=== PATIENT | male | born 1990 | race Caucasian/White ===

== ENCOUNTER 2016-08-06 19:14 | Emergency (ER) | payer SELFPAY ==
[2016-08-06 19:26] VITALS: RESP 18
--- NOTE | 2016-08-06 20:32 | ED ---
General Adult HPI - General Chief complaint: Extremity Injury, Lower Stated complaint: ankle pain Time Seen by Provider: 08/06/16 20:05 Source: patient, RN notes reviewed Mode of arrival: ambulatory Limitations: no limitations - History of Present Illness Initial comments: This is a 26-year-old male presents with chronic left ankle pain after a fall that happened about a month ago. Patient states he rolled his ankle while walking about one month ago. Patient states he had an x-ray done and this was negative. Patient was told he had a right ankle sprain the swelling has not gone down after month. Patient has been walking on the left lower extremity. Patient is on his feet a lot at work. Patient has been resting and elevating and icing left ankle, but the swelling persists. Patient did not follow-up with orthopedics as he could not get into the office due to loss of insurance. Patient denies any new or recent injury to left ankle. Patient also complains of some mild left foot pain. Patient denies any numbness/weakness/tingling. Patient denies any recent fever, chills, shortness breath, chest pain, abdominal pain, nausea/vomiting/diarrhea, back pain, hematuria, headache, or visual changes, or any other complaints. - Related Data Home Medications Medication Instructions Recorded Confirmed No Known Home Medications [No 08/06/16 08/06/16 Known Home Medications] Allergies Allergy/AdvReac Type Severity Reaction Status Date / Time Penicillins Allergy Unknown Verified 08/06/16 19:26 Review of Systems ROS Statement: Those systems with pertinent positive or pertinent negative responses have been documented in the HPI. ROS Other: All systems not noted in ROS Statement are negative. Past Medical History Past Medical History: No Reported History History of Any Multi-Drug Resistant Organisms: None Reported Past Surgical History: Orthopedic Surgery Past Psychological History: No Psychological Hx Reported Smoking Status: Current every day smoker Past Alcohol Use History: None Reported Past Drug Use History: Marijuana General Exam - General Exam Comments Initial Comments: General: The patient is awake and alert, in no distress, and does not appear acutely ill. Neck: The neck is supple, there is no tenderness or JVD. Cardiovascular: There is a regular rate and rhythm. No murmur, rub or gallop is appreciated. Respiratory: Lungs are clear to auscultation, respirations are non-labored, breath sounds are equal. No wheezes, stridor, rales, or rhonchi. Musculoskeletal: There is tenderness to palpation over the lateral aspect of the left ankle and to the dorsal aspect of the left foot near the third and fourth MTP joints. There is moderate swelling to the lateral aspect of the left ankle with mild erythema. There is no ecchymosis. Full range of motion, strength 5/5 and Sensation intact. Posterior and dorsalis pedis pulses are 2+ bilaterally. Neurological: A&O x 3. CN II-XII intact, There are no obvious motor or sensory deficits. Coordination appears grossly intact. Speech is normal. Skin: Skin is warm and dry and no rashes or lesions are noted. Psychiatric: Normal mood and affect. Limitations: no limitations Course Vital Signs 08/06/16 19:23 Temperature 98.2 F Pulse Rate 68 Respiratory 18 Rate Blood Pressure 121/66 O2 Sat by Pulse 99 Oximetry Medical Decision Making - Medical Decision Making This is a 26-year-old male who presents with chronic left ankle pain after he rolled his ankle about one month ago. Patient complains of persistent swelling and pain. On physical exam There is tenderness to palpation over the lateral aspect of the left ankle and to the dorsal aspect of the left foot near the third and fourth MTP joints. There is moderate swelling to the lateral aspect of the left ankle with mild erythema. There is no ecchymosis. Full range of motion, strength 5/5 and Sensation intact. Posterior and dorsalis pedis pulses are 2+ bilaterally. An x-ray of the left ankle and left foot was done and review showing:X-ray foot left: No evidence of fracture dislocation. Redemonstration of soft tissue swelling over the lateral malleolus and small tibiotalar joint effusion. As recommended on the ankle radiograph of the same day MR could be performed due to suspected ligamentous injury. X-ray ankle left : There is no fracture or dislocation evident considering persistent soft tissue swelling over the lateral malleolus, small joint effusion, and persistent pain one month after injury ligamentous injury suspected. Nonemergent MR can be performed for further evaluation. Reports read by Dr. Hammond. Discussed the imaging results with the patient. Discussed rest, ice, elevate and use Timmy wrap for compression. Patient will be given a prescription for an air cast. Discussed range of motion exercises. Discussed that sprains can be swollen for months. Discussed that patient should follow up with orthopedics in the next 1-2 days. Discussed that patient may need possible MRI. Discussed return parameters. Discussed that patient should follow up with PCP in one to 2 days or return to the [facility] for any worsening symptoms or for any further concerns. Patient was receptive to this plan and patient will be discharged home. I discussed his case with attending physician Dr. Gross who agrees the plan as stated above. Disposition Clinical Impression: Left ankle sprain Disposition: HOME SELF-CARE Condition: Good Instructions: Ankle Sprain (ED) Additional Instructions: Please continue to rest, ice, elevate and use Timmy wrap for compression. Please use Aircast as needed for stability. Please perform range of motion exercises multiple times throughout the day. Please continue kevs-laz-[id number] Tylenol and or Motrin as needed for any pain. Follow up with orthopedics as soon as possible. Please follow-up with family doctor in the next 2 days of symptoms have not improved. Please return to emergency room if the symptoms increase or worsen or for any other concerns. Referrals: Amrinda Parkinson MD [Primary Care Provider] - 1-2 days Marcin Park MD [Medical Doctor] - 1-2 days Time of Disposition: 21:14
--- NOTE | 2016-08-06 21:04 | XR ---
EXAMINATION TYPE: XR ankle complete LT DATE OF EXAM: 08/06/2016 8:34 PM COMPARISON: NONE HISTORY: Left foot and left ankle pain with swelling since injury about one month prior. Worst pain i s overlying the lateral malleolus. TECHNIQUE: 3 views of the left ankle were obtained. FINDINGS: There is a tibiotalar small joint effusion present with obscuration of the fascial planes b oth anteriorly and posteriorly. Lateral soft tissue swelling is noted. There is no evidence of fractu re or dislocation. No radiopaque foreign body. Ankle mortise is intact. Joint spaces are maintained. IMPRESSION: No there is no fracture or dislocation evident considering persistent soft tissue swellin g over the lateral malleolus, small joint effusion, and persistent pain one month after injury ligame ntous injury is suspected. Nonemergent MR could be performed for further evaluation.
--- NOTE | 2016-08-06 21:06 | XR ---
EXAMINATION TYPE: XR foot complete LT DATE OF EXAM: 08/06/2016 8:34 PM COMPARISON: Left ankle radiographs of the same day. HISTORY: Left foot and ankle pain one month after injury. TECHNIQUE: Reviews were obtained of the left foot. FINDINGS: There is no evidence of fracture or dislocation. Again there is a small tibiotalar joint ef fusion noted as seen on the ankle radiographs and swelling over the lateral malleolus, also appreciat ed on the ankle radiographs of the same day. No radiopaque foreign body or soft tissue laceration. Zaira int spaces are maintained. IMPRESSION: No evidence of fracture or dislocation. Redemonstration of soft tissue swelling over the lateral malleolus and small tibiotalar joint effusion. As recommended on the ankle radiograph of the same day MR could be performed due to suspected ligamentous injury.
[2016-08-06 21:31] VITALS: BP 130/78; PULSE 84; TEMP 97.8
== END 2016-08-06 21:15 | disposition home or self-care (01) ==
LOC: EC 19:14
DX: S93.402A Sprain of unspecified ligament of left ankle, initial encounter (principal); F17.200 Nicotine dependence, unspecified, uncomplicated; X50.1XXA Overexertion from prolonged static or awkward postures, initial encounter; Z88.0 Allergy status to penicillin
CPT/HCPCS: 99283

== ENCOUNTER 2016-11-10 16:47 | Emergency (ER) | payer SELFPAY ==
[2016-11-10 16:58] VITALS: BP 133/70; PULSE 98; RESP 18; TEMP 98.4
--- NOTE | 2016-11-10 17:14 | ED ---
Skin/Abscess/FB HPI - General Chief complaint: Skin/Abscess/Foreign Body Stated complaint: Leg Abscess Time Seen by Provider: 11/10/16 17:00 Source: patient, RN notes reviewed Mode of arrival: ambulatory Limitations: no limitations - History of Present Illness Initial comments: 26 yo female presents to emergency complaining of abscess to his left oneill area. Patient states he's been on antibiotics for 2 days but did not have the abscess drained at that time. Patient states he still having some drainage from the abscess without that he should be seen. Patient denies any history of MRSA but does admit to a history of abscesses. Patient denies any fever chills with this. Patient states is not currently having any other symptoms. Patient states his concern is how the dentist we thought that he should be evaluated. Patient denies any recent fever, chills, shortness of breath, chest pain, back pain, abdominal pain, nausea vomiting, numbness or tingling, dysuria or hematuria, constipation or diarrhea, headaches or visual changes, or any other current symptoms. - Related Data Home Medications Medication Instructions Recorded Confirmed Sulfamethoxazole/Trimethoprim 1 each PO DAILY 11/10/16 11/10/16 [Bactrim DS 800-160 mg] Allergies Allergy/AdvReac Type Severity Reaction Status Date / Time Penicillins Allergy Unknown Verified 11/10/16 16:58 Review of Systems ROS Statement: Those systems with pertinent positive or pertinent negative responses have been documented in the HPI. ROS Other: All systems not noted in ROS Statement are negative. Past Medical History Past Medical History: No Reported History History of Any Multi-Drug Resistant Organisms: None Reported Past Surgical History: Orthopedic Surgery Past Psychological History: No Psychological Hx Reported Smoking Status: Current every day smoker Past Alcohol Use History: None Reported Past Drug Use History: Marijuana General Exam - General Exam Comments Initial Comments: General: The patient is awake and alert, in no distress, and does not appear acutely ill. Neck: The neck is supple, there is no tenderness. Cardiovascular: There is a regular rate and rhythm. No murmur, rub or gallop is appreciated. Respiratory: Lungs are clear to auscultation, respirations are non-labored, breath sounds are equal. No wheezes, stridor, rales, or rhonchi. Musculoskeletal: Sensation intact with 2+ pulses throughout the left lower extremity. Full range of motion of the left knee and left ankle. Patient has An abscess that does have some purulent drainage to the left upper oneill. There is full range of motion. No streaking. Minimal erythema and induration surrounding the area. Neurological: CN II-XII intact, There are no obvious motor or sensory deficits. Coordination appears grossly intact. Speech is normal. Skin: Skin is warm and dry and no rashes or lesions are noted. Psychiatric: Normal mood and affect. Limitations: no limitations Course Vital Signs 11/10/16 16:55 Temperature 98.4 F Pulse Rate 98 Respiratory 18 Rate Blood Pressure 133/70 O2 Sat by Pulse 95 Oximetry Procedures - Procedures Initial comment: Procedure: Incision and drainage The skin overlying the abscess was prepped with Betadine, and anesthetized with 1% lidocaine without epinephrine. A #11 scalpel was then used to incise the abscess. Some purulent material was then extracted from the lesion. Gauze dressing placed on top, The patient tolerated the procedure well. Medical Decision Making - Medical Decision Making 26-year-old male presents for abscess to the left oneill. At this time patient underwent I&D procedure. We discussed follow-up return parameters. We discussed surgery. Patient family's questions. They stated he understood. They will be discharged. Disposition Clinical Impression: Abscess of left leg Disposition: HOME SELF-CARE Condition: Stable Instructions: Abscess (ED), Abscess Incision and Drainage (ED) Additional Instructions: Please use medication as discussed. Please follow up with family doctor if symptoms have not improved over the next two days. Please return to the emergency room if your symptoms increase or worsen or for any other concerns. Continue the antibiotics that she were previously prescribed. Referrals: Arminda Parkinson MD [Primary Care Provider] - 1-2 days Time of Disposition: 17:14
== END 2016-11-10 17:23 | disposition home or self-care (01) ==
LOC: EC 16:47
DX: L02.416 Cutaneous abscess of left lower limb (principal); F17.200 Nicotine dependence, unspecified, uncomplicated; Z88.0 Allergy status to penicillin
CPT/HCPCS: 10060; 99282

== ENCOUNTER 2017-01-26 13:16 | Emergency (ER) | payer OTHER ==
[2017-01-26 13:23] VITALS: BP 128/71; PULSE 84; RESP 15; TEMP 97.4
--- NOTE | 2017-01-26 13:33 | ED ---
General Adult HPI - General Chief complaint: Skin/Abscess/Foreign Body Stated complaint: Abscess Time Seen by Provider: 01/26/17 13:23 Source: patient, RN notes reviewed Mode of arrival: ambulatory Limitations: no limitations - History of Present Illness Initial comments: 26-year-old male presents emergency Department chief complaint abscess to the left hip. Patient states that it is already draining. He has been using some leftover Bactrim at home. Patient menstrual history of abscess in the past. Patient states he was concerned that it may need to be contact however 3 thought that he should be seen. Patient denies any fever chills cough cold runny nose. Patient states only if you touch the ear is painful sitting here he is not having pain. Patient denies any other symptoms at this time.Patient denies any recent fever, chills, shortness of breath, chest pain, back pain, abdominal pain, nausea vomiting, numbness or tingling, dysuria or hematuria, constipation or diarrhea, headaches or visual changes, or any other current symptoms. - Related Data Home Medications Medication Instructions Recorded Confirmed Sulfamethoxazole/Trimethoprim 1 each PO DAILY 11/10/16 11/10/16 [Bactrim DS 800-160 mg] Previous Rx's Medication Instructions Recorded Sulfamethox-Tmp 800-160Mg [Bactrim 2 each PO Q12HR #56 tab 01/26/17 DS 800-160 mg] Allergies Allergy/AdvReac Type Severity Reaction Status Date / Time Penicillins Allergy Unknown Verified 01/26/17 13:22 Review of Systems ROS Statement: Those systems with pertinent positive or pertinent negative responses have been documented in the HPI. ROS Other: All systems not noted in ROS Statement are negative. Past Medical History Past Medical History: No Reported History History of Any Multi-Drug Resistant Organisms: None Reported Past Surgical History: Orthopedic Surgery Past Psychological History: No Psychological Hx Reported Smoking Status: Former smoker Past Alcohol Use History: None Reported Past Drug Use History: Marijuana General Exam Limitations: no limitations General appearance: alert, in no apparent distress Neck exam: Present: normal inspection. Absent: tenderness, meningismus, lymphadenopathy Respiratory exam: Absent: respiratory distress Cardiovascular Exam: Present: regular rate Neurological exam: Present: alert, oriented X3 Psychiatric exam: Present: normal affect, normal mood Skin exam: Present: warm, dry, intact, other (Patient appears to have an actively draining abscess to the left groin area. Mild erythema surrounding the area.) Course Vital Signs 01/26/17 13:20 Temperature 97.4 F L Pulse Rate 84 Respiratory 15 Rate Blood Pressure 128/71 O2 Sat by Pulse 98 Oximetry Medical Decision Making - Medical Decision Making 26-year-old male presents for abscess to the left groin. This time we'll continue patient on Bactrim. We discussed return parameters and follow-up all the patient's questions. He stated he understood and he is given his pain. At this time he will be discharged home. Disposition Clinical Impression: Abscess of left hip Disposition: HOME SELF-CARE Condition: Stable Instructions: Abscess (ED) Additional Instructions: Please use medication as discussed. Please follow up with family doctor if symptoms have not improved over the next two days. Please return to the emergency room if your symptoms increase or worsen or for any other concerns. Prescriptions: Sulfamethox-Tmp 800-160Mg [Bactrim DS 800-160 mg] 2 each PO Q12HR #56 tab Referrals: Arminda Parkinson MD [Primary Care Provider] - 1-2 days Time of Disposition: 13:32
== END 2017-01-26 13:42 | disposition home or self-care (01) ==
LOC: EC 13:16
DX: L02.416 Cutaneous abscess of left lower limb (principal); Z87.891 Personal history of nicotine dependence; Z88.0 Allergy status to penicillin
CPT/HCPCS: 99282

== ENCOUNTER 2017-12-19 12:12 | Emergency (ER) | payer OTHER ==
[2017-12-19 12:20] VITALS: BP 126/88; PULSE 80; RESP 20; TEMP 98.8
[2017-12-19] MEDS ORDERED: CLINDAMYCIN 150 MG CAP PO STA (12:31)
[2017-12-19] MEDS ORDERED: KETOROLAC 30 MG/ML 1 ML VIAL IM STA (12:33)
--- NOTE | 2017-12-19 12:35 | ED ---
ENT HPI - General Chief complaint: ENT Stated complaint: FACIAL SWELLING Time Seen by Provider: 12/19/17 12:21 Source: patient Mode of arrival: ambulatory Limitations: no limitations - History of Present Illness Initial comments: 27-year-old male patient presents to the emergency department today for evaluation of right upper dental pain and facial swelling. Patient states that he has had symptoms for the last 3 days. Patient states that he does have a broken tooth to the area. Patient states he has been taking ibuprofen for his pain but it is not helping. States he has been taking Keflex for the past 3 days which is also not helping. Significant other reports that he had a fever of 100.1F the other day. Patient states he does not have a dentist or dental insurance. He denies any trismus, difficulty swallowing, eye pain, nausea, or vomiting. Patient denies any recent rash, shortness breath, chest pain, dizziness, weakness, headache, visual changes, or any other complaints. - Related Data Home Medications Medication Instructions Recorded Confirmed Sulfamethoxazole/Trimethoprim 1 each PO DAILY 11/10/16 11/10/16 [Bactrim DS 800-160 mg] Previous Rx's Medication Instructions Recorded Sulfamethox-Tmp 800-160Mg [Bactrim 2 each PO Q12HR #56 tab 01/26/17 DS 800-160 mg] Acetaminophen-Codeine 300-30mg 1 tab PO Q6H PRN #12 tablet 12/19/17 [Tylenol #3] Clindamycin HCl 300 mg PO Q6H #40 cap 12/19/17 Allergies Allergy/AdvReac Type Severity Reaction Status Date / Time Penicillins Allergy Unknown Verified 12/19/17 12:20 Review of Systems ROS Statement: Those systems with pertinent positive or pertinent negative responses have been documented in the HPI. ROS Other: All systems not noted in ROS Statement are negative. Past Medical History Past Medical History: No Reported History History of Any Multi-Drug Resistant Organisms: None Reported Past Surgical History: Orthopedic Surgery Additional Past Surgical History / Comment(s): rt ankle Past Psychological History: No Psychological Hx Reported Smoking Status: Former smoker Past Alcohol Use History: None Reported Past Drug Use History: Marijuana General Exam Limitations: no limitations General appearance: alert, in no apparent distress, other (This is a well- developed, well-nourished adult male patient in no acute distress. Vital signs upon presentation are temperature 98.8F, pulse 80, respirations 20, blood pressure 126/88, pulse ox 99% on room air.) Eye exam: Present: PERRL, EOMI, periorbital swelling (Right lower lid swelling) , other (No proptosis, no eye pain with palpation). Absent: normal appearance, scleral icterus, conjunctival injection ENT exam: Present: mucous membranes moist, other (Patient has broken tooth #4. Surrounding gingival erythema and swelling. No palpable abscess. There is right sided maxillary swelling extending to the right lower eyelid. No erythema.). Absent: normal exam Neck exam: Present: normal inspection. Absent: tenderness, meningismus, lymphadenopathy Respiratory exam: Present: normal lung sounds bilaterally. Absent: respiratory distress, wheezes, rales, rhonchi, stridor Cardiovascular Exam: Present: regular rate, normal rhythm, normal heart sounds. Absent: systolic murmur, diastolic murmur, rubs, gallop, clicks Neurological exam: Present: alert, oriented X3, CN II-XII intact Psychiatric exam: Present: normal affect, normal mood Skin exam: Present: warm, dry, intact, normal color. Absent: rash Course Vital Signs 12/19/17 12:18 Temperature 98.8 F Pulse Rate 80 Respiratory 20 Rate Blood Pressure 126/88 O2 Sat by Pulse 99 Oximetry Medical Decision Making - Medical Decision Making 27-year-old male patient presents the emergency department today for evaluation of right upper dental pain with right-sided facial swelling. The patient is currently afebrile. Physical examination did reveal swelling to the right maxillary region with extension of the swelling to the right lower eyelid. There is no proptosis or eye tenderness with palpation. Patient is able to open his closes mouth without difficulty. He has been taking Keflex, we will switch this to clindamycin. Be given a prescription for Tylenol with Codeine. He is instructed to continue taking ibuprofen. He will be given referrals to dental services for those without insurance. Return parameters were discussed in detail. He verbalizes understanding and agrees with this plan. Disposition Clinical Impression: Dental abscess Disposition: HOME SELF-CARE Condition: Good Instructions: Dental Abscess (ED) Additional Instructions: Take medications as directed. Follow-up with dentistry as soon as possible. Return here immediately for any new, worsening, or concerning symptoms. Please follow up with the [facility] dental [facility]. [id number] [place] [address]. Phone number for new patients or for existing patients. [facility]. Must pay for x-rays then services are free. Call for an appointment. Prescriptions: Acetaminophen-Codeine 300-30mg [Tylenol #3] 1 tab PO Q6H PRN #12 tablet PRN Reason: Pain Clindamycin HCl 300 mg PO Q6H #40 cap Is patient prescribed a controlled substance at d/c from ED?: Yes When asked, does pt state using other controlled substances?: No If prescribed controlled substance>3 days was MAPS reviewed?: Prescribed <3 Days If opioid is for acute pain is fill amount 7 days or less?: Yes If Rx opioid, was Start Talking consent form obtained?: Yes Referrals: Arminda Parkinson MD [Primary Care Provider] - 1-2 days Time of Disposition: 12:35
== END 2017-12-19 13:02 | disposition home or self-care (01) ==
LOC: EC 12:12
DX: K04.7 Periapical abscess without sinus (principal); S02.5XXA Fracture of tooth (traumatic), initial encounter for closed fracture; H02.842 Edema of right lower eyelid; Z87.891 Personal history of nicotine dependence; Z88.0 Allergy status to penicillin; X58.XXXA Exposure to other specified factors, initial encounter
CPT/HCPCS: 99283; 96372; J1885

== ENCOUNTER 2018-06-14 13:53 | Emergency (ER) | payer OTHER ==
--- NOTE | 2018-06-14 14:52 | ED ---
General Adult HPI - General Chief complaint: Recheck/Abnormal Lab/Rx Stated complaint: abcess on rt leg Source: patient, RN notes reviewed, old records reviewed Mode of arrival: ambulatory Limitations: no limitations - History of Present Illness Initial comments: 27-year-old male patient past medical history of abscesses presents to ED with abscess on right mid shaft tibia/fibula. They can states that he has been expressing this for approximately one week. Patient was seen at [facility] on 06/04 where he had a incision and drainage procedure, was placed on Bactrim double strength one tablet twice a day. Patient states that his abscess has been actively draining since the procedure, however does not believe that it has improved since he began Bactrim. Patient is presenting today for continued evaluation, and potential change of antibiotic. Patient is ambulatory without difficulty. Patient denies nausea vomiting diarrhea, fever or chills. Patient denies chest pain, shortness of breath, abdominal pain. Systemic: Pt denies fatigue, myalgia, fever/chills, rash. Pt denies weakness, night sweats, weight loss. Neuro: Pt denies headache, visual disturbances, syncope or pre-syncope. HEENT: Pt denies ocular discharge or irritation, otalgia, rhinorrhea, pharyngitis or notable lymphadenopathy. Cardiopulmonary: Pt denies chest pain, SOB, heart palpitations, dyspnea on exertion. Abdominal/GI: Pt denies abdominal pain, n/v/d. : Pt denies dysuria, burning w/ urination, frequency/urgency. Denies new onset urinary or bowel incontinence. MSK: Pt denies myalgia, loss of strength or function in extremities. Neuro: Pt denies new onset weakness, paresthesias. - Related Data Home Medications Medication Instructions Recorded Confirmed Sulfamethoxazole/Trimethoprim 1 each PO DAILY 11/10/16 11/10/16 [Bactrim DS 800-160 mg] Previous Rx's Medication Instructions Recorded Sulfamethox-Tmp 800-160Mg [Bactrim 2 each PO Q12HR #56 tab 01/26/17 DS 800-160 mg] Acetaminophen-Codeine 300-30mg 1 tab PO Q6H PRN #12 tablet 12/19/17 [Tylenol #3] Clindamycin HCl 300 mg PO Q6H #40 cap 12/19/17 Doxycycline [Vibramycin] 100 mg PO BID 7 Days #14 capsule 06/14/18 Allergies Allergy/AdvReac Type Severity Reaction Status Date / Time Penicillins Allergy Unknown Verified 06/14/18 14:08 Review of Systems ROS Statement: Those systems with pertinent positive or pertinent negative responses have been documented in the HPI. ROS Other: All systems not noted in ROS Statement are negative. Past Medical History Past Medical History: No Reported History History of Any Multi-Drug Resistant Organisms: None Reported Past Surgical History: Orthopedic Surgery Additional Past Surgical History / Comment(s): rt ankle Past Psychological History: No Psychological Hx Reported Smoking Status: Former smoker Past Alcohol Use History: None Reported Past Drug Use History: Marijuana General Exam - General Exam Comments Initial Comments: Constitutional: NAD, AOX3, Pt has pleasant affect. HEENT: NC/AT, trachea midline, neck supple, no lymphadenopathy. Posterior pharynx non erythematous, without exudates. External ears appear normal, without discharge. Mucous membranes moist. Eyes PERRLA, EOM intact. There is no scleral icterus. No pallor noted. Cardiopulmonary: RRR, no murmurs, rubs or gallops, no JVD noted. Lungs CTAB in anterior and posterior fritz. No peripheral edema. Abdominal exam: Abdomen soft and non-distended. Abdomen non-tender to palpation in all 4 quadrants. Bowel sounds active in LLQ. No hepatosplenomegaly. No ecchymosis Neuro: CN II-XII grossly intact. No nuchal rigidity. MSK: Approximately 4 x 4 cm actively draining erythematous abscess noted on lateral midshaft fibular region. This abscess actively draining. Patient is ambulatory without difficulty. The tenderness at ankle or hip. Full range of motion of knee. No tenderness at knee. No erythema or drainage at ankle and knee or hip. No posterior calf tenderness bilaterally, homans sign negative bilaterally. Posterior tibialis and radial pulse +2 bilaterally. Sensation intact in upper and lower extremities. Full active ROM in upper and lower extremities, 5/5 stregnth. Limitations: no limitations Course Vital Signs 06/14/18 14:05 Temperature 97.8 F Pulse Rate 83 Respiratory 16 Rate Blood Pressure 109/66 O2 Sat by Pulse 98 Oximetry Medical Decision Making - Medical Decision Making 27-year-old male patient past medical history of abscesses presents to ED with abscess on right mid shaft tibia/fibula. They can states that he has been expressing this for approximately one week. Patient was seen at [facility] on 06/04 where he had a incision and drainage procedure, was placed on Bactrim double strength one tablet twice a day. Patient states that his abscess has been actively draining since the procedure, however does not believe that it has improved since he began Bactrim. Patient is presenting today for continued evaluation, and potential change of antibiotic. Patient is ambulatory without difficulty. Patient denies nausea vomiting diarrhea, fever or chills. Patient denies chest pain, shortness of breath, abdominal pain. Physical exam displayed approximately 4 x 4 centimeters abscess on the lateral aspect of right midshaft tibia/fibula. Abscess is actively draining. Small amount of purulent drainage expressed, cultures obtained. Physical exam was otherwise noncompressive, systems examined including neuro, HEENT, cardiopulmonary, abdominal, MSK. Patient antibiotic changed to doxycycline. Plain film did not display any worrisome findings, small amount of subcutaneous edema noted at site of abscess. Patient to follow with PCP in 1-2 days. Patient given referral to wound clinic, patient to call today and establish care. Patient to return to ED if abscess worsens, he develops new symptoms, nausea vomiting diarrhea, fever chills, any other new symptoms. Case discussed with Dr. Roland. Disposition Clinical Impression: Abscess Disposition: HOME SELF-CARE Condition: Good Instructions: Abscess Incision and Drainage (ED), Abscess (ED) Additional Instructions: Patient to adhere to previously discussed treatment plan and will take medication(s) as directed. Patient to follow up with PCP in 1-2 days. Patient to return to ED if symptoms do not improve. Prescriptions: Doxycycline [Vibramycin] 100 mg PO BID 7 Days #14 capsule Is patient prescribed a controlled substance at d/c from ED?: No Referrals: Arminda Parkinson MD [Primary Care Provider] - 1-2 days Julien Chaudhary MD [STAFF PHYSICIAN] - 1-2 days Time of Disposition: 15:34
--- NOTE | 2018-06-14 15:07 | XR ---
EXAMINATION TYPE: XR tibia fibula RT DATE OF EXAM: 06/14/2018 CLINICAL HISTORY: Pain with draining abscess laterally right leg. TECHNIQUE: Two views of the right leg are obtained. COMPARISON: None. FINDINGS: There is no acute fracture or dislocation seen in the right tibia or fibula. The right kn ee and ankle joints appear within normal limits. No suspicious cortical destruction or periosteal re action is seen. Mild diffuse subcutaneous edema along lateral aspect is noted. IMPRESSION: As above.
[2018-06-14 16:01] VITALS: BP 126/66; PULSE 86; RESP 18; TEMP 97.6
== END 2018-06-14 15:45 | disposition home or self-care (01) ==
LOC: EC 13:53
DX: L02.415 Cutaneous abscess of right lower limb (principal); Z98.890 Other specified postprocedural states; Z87.891 Personal history of nicotine dependence; Z88.0 Allergy status to penicillin
CPT/HCPCS: 87070; 87205; 99284

== ENCOUNTER → 2018-09-22 | Outpatient (CLI) | payer OTHER ==
--- NOTE | 2018-09-22 16:23 | XR ---
EXAMINATION TYPE: XR elbow complete RT DATE OF EXAM: 09/22/2018 CLINICAL HISTORY: Right elbow injury and pain TECHNIQUE: Frontal, lateral and oblique images of the right elbow are obtained. COMPARISON: None FINDINGS: There is no acute fracture/dislocation evident in the right elbow. No abnormal fat pad si gns are seen. The overlying soft tissue demonstrates minimal subtle fat stranding over the distal tr iceps tendon. IMPRESSION: There is no acute fracture or dislocation in the right elbow. Minimal soft tissue swelli ng over the distal triceps tendon may relate to soft tissue injury.
== END ==
LOC: RADXRMAIN 15:57
PROVIDERS: ATTEND Emergency Medicine
DX: S53.401A Unspecified sprain of right elbow, initial encounter (principal)

== ENCOUNTER 2019-09-14 | Inpatient (IN) | payer BC | END 2019-09-18 13:28 | disposition home or self-care (01) | DRG 897 | PROVIDERS: ADMIT Psychiatry & Neurology Psychiatry | CPT/HCPCS: 80053; 80061; 80306; 82075; 82248; 83036; 84443; 85025; 99285 ==

== ENCOUNTER 2019-10-08 06:51 | Emergency (ER) | payer BC ==
[2019-10-08 07:05] VITALS: RESP 18; TEMP 97.3
[2019-10-08] MEDS ORDERED: ONDANSETRON 4 MG/2 ML VIAL IVP STA (07:12)
[2019-10-08] MEDS ORDERED: KETOROLAC 30 MG/ML 1 ML VIAL IVP STA (07:12)
[2019-10-08] MEDS ORDERED: SODIUM CHLORIDE 0.9% 1,000 ML IV STA (07:12)
--- NOTE | 2019-10-08 07:24 | ED ---
Chest Pain HPI - General Chief Complaint: Chest Pain Stated Complaint: Chest pain Time Seen by Provider: 10/08/19 07:06 Source: patient, RN notes reviewed Mode of arrival: ambulatory Limitations: no limitations - History of Present Illness Initial Comments: This is a 29-year-old male with a benign history other he is a daily smoker who states that he had the onset about one hour ago of severe mid epigastric lower sternal chest pain. She states is very sharp 10/10 severity associated with nausea. He's had several episodes in the past she has no known history of gastritis reflux gallbladder disease no known history of heart or lung disease. MD Complaint: chest pain - Related Data Previous Rx's Medication Instructions Recorded ARIPiprazole [Abilify] 5 mg PO DAILY 30 Days tab 09/18/19 Ibuprofen [Motrin] 400 mg PO TID PRN tab 09/18/19 Melatonin 5 mg PO HS 30 Days tablet 09/18/19 Nicotine Polacrilex [Nicorette] 2 mg BUCCAL Q4HR PRN 14 Days gum 09/18/19 traZODone HCL 150 mg PO HS 30 Days tablet 09/18/19 Pantoprazole Sodium [Protonix] 20 mg PO DAILY #15 tablet. 10/08/19 Allergies Allergy/AdvReac Type Severity Reaction Status Date / Time Penicillins Allergy Unknown Verified 10/08/19 07:06 Review of Systems ROS Statement: Those systems with pertinent positive or pertinent negative responses have been documented in the HPI. ROS Other: All systems not noted in ROS Statement are negative. EKG Findings - EKG Results: EKG: interpreted by SENAIT, sinus rhythm (Sinus rhythm rate 71. Interval 140 QRS duration 92 QT since QTC 384/417 right word axis no acute ST-T wave) Past Medical History Past Medical History: No Reported History History of Any Multi-Drug Resistant Organisms: None Reported Past Surgical History: Orthopedic Surgery Additional Past Surgical History / Comment(s): rt ankle Past Psychological History: Anxiety, Depression Smoking Status: Current every day smoker Past Alcohol Use History: None Reported Past Drug Use History: None Reported General Exam - General Exam Comments Initial Comments: This is a well-developed sec appearing male was awake alert oriented 3 and in apparent distress Limitations: no limitations General appearance: alert, anxious, in distress Head exam: Present: atraumatic, normocephalic, normal inspection Eye exam: Present: normal appearance, PERRL, EOMI. Absent: scleral icterus, conjunctival injection, periorbital swelling ENT exam: Present: normal exam, mucous membranes moist Neck exam: Present: normal inspection, full ROM, other (No stridor JVD or bruits). Absent: tenderness, meningismus, lymphadenopathy Respiratory exam: Present: normal lung sounds bilaterally. Absent: respiratory distress, wheezes, rales, rhonchi, stridor Cardiovascular Exam: Present: regular rate, normal rhythm, normal heart sounds. Absent: systolic murmur, diastolic murmur, rubs, gallop, clicks GI/Abdominal exam: Present: soft, tenderness (Epigastric tenderness palpation proximal tenderness over the xiphoid no overt guarding or rebound. This time), normal bowel sounds. Absent: distended, guarding, rebound, rigid Extremities exam: Present: normal inspection, full ROM, normal capillary refill. Absent: tenderness, pedal edema, joint swelling, calf tenderness Back exam: Present: normal inspection Neurological exam: Present: alert, oriented X3, CN II-XII intact Psychiatric exam: Present: normal affect, normal mood Skin exam: Present: warm, intact, normal color, diaphoretic. Absent: rash Course Vital Signs 10/08/19 10/08/19 10/08/19 06:55 07:02 07:55 Temperature 97.3 F L Pulse Rate 75 79 Pulse Rate [ 80 [employer] ] Respiratory 18 18 Rate Blood Pressure 129/70 120/82 O2 Sat by Pulse 100 98 Oximetry Procedures - Smoking Cessation Time Spent Discussing Smoking Cessation w/Patient (Minutes): 3 Patient Acknowledges Need for Cessation: Yes Chest Pain MDM - MDM I did reevaluate patient several occasions feeling much improved after the medication was given. 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 Patient be discharged on appropriate medication the presentation is consistent with acute gastritis Disposition Clinical Impression: Acute gastritis, Abdominal pain, Smoking Disposition: HOME SELF-CARE Condition: Good Instructions (If sedation given, give patient instructions): Abdominal Pain (ED), Gastritis (ED), How to Stop Smoking (ED) Additional Instructions: Medication [facility] Prescriptions: Pantoprazole Sodium [Protonix] 20 mg PO DAILY #15 tablet.dr Is patient prescribed a controlled substance at d/c from ED?: No Referrals: Arminda Parkinson MD [Primary Care Provider] - 1-2 days
[2019-10-08] MEDS ORDERED: MAG HYDROX/AL HYDROX/SIMETH 30 ML, HYOSCYAMINE ELIXIR 10 ML, LIDOCAINE VISCOUS 2% 10 ML PO STA ×3 (07:48)
--- NOTE | 2019-10-08 07:48 | XR ---
EXAMINATION TYPE: XR chest 2V DATE OF EXAM: 10/08/2019 HISTORY: Chest Pain. REFERENCE: NONE. FINDINGS: The lungs are clear. Pleural space are clear. The heart is not enlarged. IMPRESSION: NO ACTIVE INTRATHORACIC DISEASE.
[2019-10-08 07:50] LABS: ALT 28 U/L (4-49); AST 45 U/L (17-59); African American GFR (CKD) >90 (>60 ml/min/1.73 sqM); Albumin 5.1 g/dL (3.5-5.0); Alkaline Phosphatase 86 U/L (38-126); Anion Gap 12 mmol/L; Blood Urea Nitrogen 16 mg/dL (9-20); Calcium 10.2 mg/dL (8.4-10.2); Carbon Dioxide 30 mmol/L (22-30); Chloride 98 mmol/L (98-107); Creatine Kinase 663 U/L (55-170); Glucose 135 mg/dL (74-99); Magnesium 2.2 mg/dL (1.6-2.3); Non-African American GFR(CKD) >90 (>60 ml/min/1.73 sqM); Potassium 4.1 mmol/L (3.5-5.1); Sodium 140 mmol/L (137-145); Total Bilirubin 0.6 mg/dL (0.2-1.3); Total Protein 8.3 g/dL (6.3-8.2)
[2019-10-08 08:00] LABS: D-Dimer 0.41 mg/L FEU (<0.60); INR 0.9 (<1.2); Partial Thromboplastin Time 24.4 sec (22.0-30.0); Prothrombin Time 9.4 sec (9.0-12.0)
[2019-10-08 08:11] LABS: Basophils # (A) 0.1 k/uL (0-0.2); Basophils % (A) 1 %; Eosinophils # (A) 0.2 k/uL (0-0.7); Eosinophils % (A) 1 %; Lymphocytes # (A) 1.9 k/uL (1.0-4.8); Lymphocytes % (A) 12 %; MCH 29.8 pg (25.0-35.0); MCHC 34.8 g/dL (31.0-37.0); MCV 85.6 fL (80.0-100.0); Mean Platelet Volume 8.9; Monocytes # (A) 0.7 k/uL (0-1.0); Monocytes % (A) 4 %; Neutrophils # (A) 13.2 k/uL (1.3-7.7); Neutrophils % (A) 81 %; Platelet Count 282 k/uL (150-450); RBC 5.38 m/uL (4.30-5.90); WBC 16.4 k/uL (3.8-10.6)
--- NOTE | 2019-10-08 08:43 | ED ---
Medical Decision Making - Medical Decision Making The patient inadvertently had smoking cessation activities noted in the chart the patient denies being a smoker this is an error. - Lab Data Result diagrams: 10/08/19 07:30 10/08/19 07:30 Lab Results 10/08/19 10/08/19 10/08/19 Range/Units 07:30 07:30 07:30 WBC 16.4 H (3.8-10.6) k/uL RBC 5.38 (4.30-5.90) m/uL Hgb 16.0 (13.0-17.5) gm/dL Hct 46.0 (39.0-53.0) % MCV 85.6 (80.0-100.0) fL MCH 29.8 (25.0-35.0) pg MCHC 34.8 (31.0-37.0) g/dL RDW 13.0 (11.5-15.5) % Plt Count 282 (150-450) k/uL Neutrophils % 81 % Lymphocytes % 12 % Monocytes % 4 % Eosinophils % 1 % Basophils % 1 % Neutrophils # 13.2 H (1.3-7.7) k/uL Lymphocytes # 1.9 (1.0-4.8) k/uL Monocytes # 0.7 (0-1.0) k/uL Eosinophils # 0.2 (0-0.7) k/uL Basophils # 0.1 (0-0.2) k/uL PT 9.4 (9.0-12.0) sec INR 0.9 (<1.2) APTT 24.4 (22.0-30.0) sec D-Dimer 0.41 (<0.60) mg/L FEU Sodium 140 (137-145) mmol/L Potassium 4.1 (3.5-5.1) mmol/L Chloride 98 (98-107) mmol/L Carbon Dioxide 30 (22-30) mmol/L Anion Gap 12 mmol/L BUN 16 (9-20) mg/dL Creatinine 0.92 (0.66-1.25) mg/dL Est GFR (CKD-EPI)AfAm >90 (>60 ml/min/1.73 sqM) Est GFR (CKD-EPI)NonAf >90 (>60 ml/min/1.73 sqM) Glucose 135 H (74-99) mg/dL Calcium 10.2 (8.4-10.2) mg/dL Magnesium 2.2 (1.6-2.3) mg/dL Total Bilirubin 0.6 (0.2-1.3) mg/dL AST 45 (17-59) U/L ALT 28 (4-49) U/L Alkaline Phosphatase 86 (38-126) U/L Creatine Kinase 663 H (55-170) U/L Troponin I (0.000-0.034) ng/mL Total Protein 8.3 H (6.3-8.2) g/dL Albumin 5.1 H (3.5-5.0) g/dL Lipase 83 (23-300) U/L 10/08/19 Range/Units 07:30 WBC (3.8-10.6) k/uL RBC (4.30-5.90) m/uL Hgb (13.0-17.5) gm/dL Hct (39.0-53.0) % MCV (80.0-100.0) fL MCH (25.0-35.0) pg MCHC (31.0-37.0) g/dL RDW (11.5-15.5) % Plt Count (150-450) k/uL Neutrophils % % Lymphocytes % % Monocytes % % Eosinophils % % Basophils % % Neutrophils # (1.3-7.7) k/uL Lymphocytes # (1.0-4.8) k/uL Monocytes # (0-1.0) k/uL Eosinophils # (0-0.7) k/uL Basophils # (0-0.2) k/uL PT (9.0-12.0) sec INR (<1.2) APTT (22.0-30.0) sec D-Dimer (<0.60) mg/L FEU Sodium (137-145) mmol/L Potassium (3.5-5.1) mmol/L Chloride (98-107) mmol/L Carbon Dioxide (22-30) mmol/L Anion Gap mmol/L BUN (9-20) mg/dL Creatinine (0.66-1.25) mg/dL Est GFR (CKD-EPI)AfAm (>60 ml/min/1.73 sqM) Est GFR (CKD-EPI)NonAf (>60 ml/min/1.73 sqM) Glucose (74-99) mg/dL Calcium (8.4-10.2) mg/dL Magnesium (1.6-2.3) mg/dL Total Bilirubin (0.2-1.3) mg/dL AST (17-59) U/L ALT (4-49) U/L Alkaline Phosphatase (38-126) U/L Creatine Kinase (55-170) U/L Troponin I <0.012 (0.000-0.034) ng/mL Total Protein (6.3-8.2) g/dL Albumin (3.5-5.0) g/dL Lipase (23-300) U/L Disposition Clinical Impression: Acute gastritis, Abdominal pain Disposition: HOME SELF-CARE Condition: Good Instructions (If sedation given, give patient instructions): Gastritis (ED), Abdominal Pain (ED) Additional Instructions: Medication [facility] Prescriptions: Pantoprazole Sodium [Protonix] 20 mg PO DAILY #15 tablet.dr Is patient prescribed a controlled substance at d/c from ED?: No Referrals: Arminda Parkinson MD [Primary Care Provider] - 1-2 days
[2019-10-08 08:58] VITALS: BP 126/82; PULSE 73
== END 2019-10-08 08:50 | disposition home or self-care (01) ==
LOC: EC 06:51
DX: K29.00 Acute gastritis without bleeding (principal); F17.200 Nicotine dependence, unspecified, uncomplicated; Z88.0 Allergy status to penicillin
CPT/HCPCS: 36415; 93005; 85379; 83880; 80053; 82550; 83690; 83735; 84484; 85025; 85610; 85730; 71046; 99285; 99406; 96374; 96375; 96361; J2405; J1885

== ENCOUNTER 2020-03-04 02:22 | Emergency (ER) | payer OTHER ==
[2020-03-04] MEDS ORDERED: MORPHINE SULFATE 4 MG/ML SYRINGE IVP STA (03:08)
[2020-03-04] MEDS ORDERED: cefTRIAXone IN SWFI 1,000 MG/10 ML SYRINGE IVP STA (03:09)
[2020-03-04] MEDS ORDERED: VANCOMYCIN IV PER PHARMACY 1 EACH MISC MISCELLANE PRN (03:09)
[2020-03-04] MEDS ORDERED: LEVOFLOXACIN 750MG-D5W PMX 750 MG in DEXTROSE/WATER 1 150ML.BAG IVPB STA (03:10)
[2020-03-04] MEDS ORDERED: VANCOMYCIN 1,500 MG in SODIUM CHLORIDE 0.9% 250 ML IVPB STA (03:11)
[2020-03-04] MEDS ORDERED: SODIUM CHLORIDE 0.9% 1,000 ML IV SCH (03:15)
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
[2020-03-04 03:55] LABS: Basophils # (A) 0.1 k/uL (0-0.2); Basophils % (A) 0 %; Eosinophils # (A) 0.4 k/uL (0-0.7); Eosinophils % (A) 3 %; HCT 39.6 % (39.0-53.0); HGB 13.1 gm/dL (13.0-17.5); Lymphocytes # (A) 1.7 k/uL (1.0-4.8); Lymphocytes % (A) 12 %; MCH 28.6 pg (25.0-35.0); MCHC 33.2 g/dL (31.0-37.0); MCV 86.1 fL (80.0-100.0); Mean Platelet Volume 8.6; Monocytes # (A) 0.6 k/uL (0-1.0); Monocytes % (A) 4 %; Neutrophils # (A) 11.5 k/uL (1.3-7.7); Neutrophils % (A) 80 %; Platelet Count 226 k/uL (150-450); RBC 4.59 m/uL (4.30-5.90); RDW 12.7 % (11.5-15.5); WBC 14.4 k/uL (3.8-10.6)
[2020-03-04 03:59] LABS: ALT 17 U/L (4-49); AST 26 U/L (17-59); African American GFR (CKD) >90 (>60 ml/min/1.73 sqM); Albumin 4.2 g/dL (3.5-5.0); Alkaline Phosphatase 71 U/L (38-126); Anion Gap 9 mmol/L; Blood Urea Nitrogen 10 mg/dL (9-20); Calcium 9.2 mg/dL (8.4-10.2); Carbon Dioxide 27 mmol/L (22-30); Chloride 101 mmol/L (98-107); Glucose 142 mg/dL (74-99); Non-African American GFR(CKD) >90 (>60 ml/min/1.73 sqM); Potassium 3.7 mmol/L (3.5-5.1); Sodium 137 mmol/L (137-145); Total Bilirubin 0.4 mg/dL (0.2-1.3); Total Protein 6.7 g/dL (6.3-8.2)
[2020-03-04 04:13] VITALS: BP 137/81; PULSE 91; RESP 19; TEMP 98.7
== END 2020-03-04 03:55 | disposition other institution (70) ==
LOC: EC 02:22
DX: M65.9 Synovitis and tenosynovitis, unspecified (principal); F17.200 Nicotine dependence, unspecified, uncomplicated; Z88.0 Allergy status to penicillin
CPT/HCPCS: 36415; 93005; 80053; 83605; 85025; 87040; 99284; 96365; 96368; 96375; J3370; J2270; J1956

== ENCOUNTER 2024-09-19 16:30 | Emergency (ER) | payer OTHER ==
[2024-09-19 16:39] VITALS: TEMP 97.8
--- NOTE | 2024-09-19 17:13 | ED ---
General Adult HPI - General Chief complaint: Recheck/Abnormal Lab/Rx Stated complaint: syncope Time Seen by Provider: 09/19/24 16:40 Source: patient, RN notes reviewed Mode of arrival: ambulatory Limitations: no limitations - History of Present Illness Initial comments: 34-year-old male presents to the emergency department for evaluation of He does not recall driving for about 30-45 minutes last night. He states that he left the pool pak 2 nights ago around 12:30 AM and started driving. He recalls getting into the car and starting to drive. He notes that soon after he "woke up" about [address] He states that he did use methamphetamine earlier that night. - Related Data Previous Rx's Medication Instructions Recorded ARIPiprazole [Abilify] 5 mg PO DAILY 30 Days tab 09/18/19 Ibuprofen [Motrin] 400 mg PO TID PRN tab 09/18/19 Melatonin 5 mg PO HS 30 Days tablet 09/18/19 Nicotine Gum (Polacrilex) 2 mg BUCCAL Q4HR PRN 14 Days gum 09/18/19 [Nicorette] traZODone HCL 150 mg PO HS 30 Days tablet 09/18/19 Pantoprazole Sodium [Protonix] 20 mg PO DAILY #15 tablet. 10/08/19 Cephalexin [Keflex] 500 mg PO Q6H 10 Days #40 cap 03/03/20 Sulfamethox-Tmp 800-160Mg [Bactrim 1 tab PO Q12HR #20 tab 03/03/20 DS 800-160 mg] Cephalexin [Keflex] 500 mg PO Q12HR 7 Days #14 cap 09/21/24 Allergies Allergy/AdvReac Type Severity Reaction Status Date / Time Penicillins Allergy Unknown Verified 09/19/24 16:31 Review of Systems ROS Statement: Those systems with pertinent positive or pertinent negative responses have been documented in the HPI. ROS Other: All systems not noted in ROS Statement are negative. Past Medical History Past Medical History: No Reported History History of Any Multi-Drug Resistant Organisms: None Reported Past Surgical History: Orthopedic Surgery Additional Past Surgical History / Comment(s): rt ankle Past Psychological History: Anxiety, Depression Smoking Status: Current some day smoker Past Alcohol Use History: None Reported Past Drug Use History: None Reported, Marijuana General Exam Limitations: no limitations General appearance: alert, in no apparent distress Head exam: Present: atraumatic, normocephalic, normal inspection Eye exam: Present: normal appearance, PERRL, EOMI. Absent: scleral icterus, conjunctival injection, periorbital swelling ENT exam: Present: normal exam, mucous membranes moist Respiratory exam: Present: normal lung sounds bilaterally. Absent: respiratory distress, wheezes, rales, rhonchi, stridor Cardiovascular Exam: Present: regular rate, normal rhythm, normal heart sounds. Absent: systolic murmur, diastolic murmur, rubs, gallop, clicks GI/Abdominal exam: Present: soft, normal bowel sounds. Absent: distended, tenderness, guarding, rebound, rigid Extremities exam: Present: normal inspection, full ROM, normal capillary refill. Absent: tenderness, pedal edema, joint swelling, calf tenderness Neurological exam: Present: alert, oriented X3 Psychiatric exam: Present: normal affect, normal mood Skin exam: Present: warm, dry, intact, normal color. Absent: rash Course Vital Signs 09/19/24 09/19/24 16:33 18:25 Temperature 97.8 F Pulse Rate 102 H 77 Respiratory 15 18 Rate Blood Pressure 132/84 126/75 O2 Sat by Pulse 99 99 Oximetry Medical Decision Making - Medical Decision Making Was pt. sent in by a medical professional or institution (, PA, LABELER, urgent care, hospital, or mcc...) When possible be specific @ -No Did you speak to anyone other than the patient for history (EMS, parent, family, police, friend...)? What history was obtained from this source @ -No Did you review nursing and triage notes (agree or disagree)? Why? @ -I reviewed and agree with nursing and triage notes Were old charts reviewed (outside hosp., previous admission, EMS record, old EKG, old radiological studies, urgent care reports/EKG's, mcc records)? Report findings @ -No old charts were reviewed Differential Diagnosis (chest pain, altered mental status, abdominal pain women, abdominal pain men, vaginal bleeding, weakness, fever, dyspnea, syncope, headache, dizziness, GI bleed, back pain, seizure, CVA, palpatations, mental health, musculoskeletal)? @ -Differential Altered Mental Status: Hypoglycemia, DKA, hypercapnia, ETOH, overdose, CO poisoning, trauma, myxedema coma, HTN encephalopathy, infection, encephalitis, psychosis, intercranial hemorrhage, hepatic encephalopathy, meningitis, CVA, this is not meant to be an all-inclusive list EKG interpreted by me (3pts min.). @ -None X-rays interpreted by me (1pt min.). @ -None done CT interpreted by me (1pt min.). @ -None done U/S interpreted by me (1pt. min.). @ -None done What testing was considered but not performed or refused? (CT, X-rays, U/S, labs)? Why? @ -None What meds were considered but not given or refused? Why? @ -None Did you discuss the management of the patient with other professionals (professionals i.e. , PA, LABELER, lab, RT, psych nurse, licensed social worker, dental practice manager, teacher, chief security and safety officer, lead case manager)? Give summary @ -No Was smoking cessation discussed for >3mins.? @ -No Was critical care preformed (if so, how long)? @ -No Were there social determinants of health that impacted care today? How? (Homelessness, low income, unemployed, alcoholism, drug addiction, transportation, low edu. Level, literacy, decrease access to med. care, [facility]ci, rehab)? @ -No Was there de-escalation of care discussed even if they declined (Discuss DNR or withdrawal of care, Hospice)? DNR status @ -No What co-morbidities impacted this encounter? (DM, HTN, Smoking, COPD, CAD, Cancer, CVA, ARF, Chemo, Hep., AIDS, mental health diagnosis, sleep apnea, morbid obesity)? @ -None Was patient admitted / discharged? Hospital course, mention meds given and route, prescriptions, significant lab abnormalities, going to OR and other pertinent info. @ -Discharge. Patient reports an episode last night. He is not having any symptoms currently. Laboratory studies obtained revealing no significant leukocytosis, hemoglobin 14.3; CMP actionable; UA shows positive nitrate, small leukocyte esterase, 17 WBCs. Urine sent for culture. Drug screen positive for methamphetamines and marijuana. I believe the event was likely due to the patient's methamphetamine use. He will be discharged home. Patient understanding and agreeable with plan. Patient stable at time of discharge. Case discussed with Dr. Arrington Undiagnosed new problem with uncertain prognosis? @ -No Drug Therapy requiring intensive monitoring for toxicity (Heparin, Nitro, Insulin, Cardizem)? @ -No Were any procedures done? @ -No Diagnosis/symptom? @ -drug induced amnesia Acute, or Chronic, or Acute on Chronic? @ -acute Uncomplicated (without systemic symptoms) or Complicated (systemic symptoms)? @ -uncomplicated Side effects of treatment? @ -No Exacerbation, Progression, or Severe Exacerbation? @ -No Poses a threat to life or bodily function? How? (Chest pain, [place], [place], pneumonia, PE, COPD, DKA, ARF, appy, cholecystitis, CVA, Diverticulitis, Homicidal, Suicidal, threat to staff... and all critical care pts) @ -No - Lab Data Result diagrams: 09/19/24 17:30 09/19/24 17:30 Lab Results 09/19/24 09/19/24 09/19/24 Range/Units 17:30 17:30 17:30 WBC 10.3 (3.8-10.6) k/uL RBC 4.97 (4.30-5.90) m/uL Hgb 14.3 (13.0-17.5) gm/dL Hct 41.8 (39.0-53.0) % MCV 84.2 (80.0-100.0) fL MCH 28.9 (25.0-35.0) pg MCHC 34.3 (31.0-37.0) g/dL RDW 12.4 (11.5-15.5) % Plt Count 278 (150-450) k/uL MPV 8.0 Neutrophils % 63 % Lymphocytes % 28 % Monocytes % 5 % Eosinophils % 2 % Basophils % 1 % Neutrophils # 6.5 (1.3-7.7) k/uL Lymphocytes # 2.9 (1.0-4.8) k/uL Monocytes # 0.5 (0-1.0) k/uL Eosinophils # 0.2 (0-0.7) k/uL Basophils # 0.1 (0-0.2) k/uL Sodium 136 L (137-145) mmol/L Potassium 4.4 (3.5-5.1) mmol/L Chloride 99 (98-107) mmol/L Carbon Dioxide 31 H (22-30) mmol/L Anion Gap 6 mmol/L BUN 19 (9-20) mg/dL Creatinine 1.03 (0.66-1.25) mg/dL Est GFR (CKD-EPI)AfAm >90 (>60 ml/min/1.73 sqM) Est GFR (CKD-EPI)NonAf >90 (>60 ml/min/1.73 sqM) Glucose 115 H (74-99) mg/dL Calcium 9.3 (8.4-10.2) mg/dL Total Bilirubin 0.6 (0.2-1.3) mg/dL AST 54 (17-59) U/L ALT 34 (4-49) U/L Alkaline Phosphatase 72 (38-126) U/L Total Protein 6.8 (6.3-8.2) g/dL Albumin 4.4 (3.5-5.0) g/dL Urine Color Yellow Urine Appearance Cloudy (Clear) Urine pH 6.5 (5.0-8.0) Ur Specific [place] 1.026 (1.001-1.035) Urine Protein Trace H (Negative) Urine Glucose (UA) Negative (Negative) Urine Ketones Negative (Negative) Urine Blood Negative (Negative) Urine Nitrite Positive (Negative) Urine Bilirubin Negative (Negative) Urine Urobilinogen <2.0 (<2.0) mg/dL Ur Leukocyte Esterase Small H (Negative) Urine RBC <1 (0-5) /hpf Urine WBC 17 H (0-5) /hpf Urine Bacteria Rare H (None) /hpf Urine Mucus Rare H (None) /hpf Urine Opiates Screen Not Detected (NotDetected) Ur Oxycodone Screen Not Detected (NotDetected) Urine Methadone Screen Not Detected (NotDetected) Ur Barbiturates Screen Not Detected (NotDetected) U Tricyclic Antidepress Not Detected (NotDetected) Ur Phencyclidine Scrn Not Detected (NotDetected) Ur Amphetamines Screen Detected H (NotDetected) U Methamphetamines Scrn Detected H (NotDetected) U Benzodiazepines Scrn Not Detected (NotDetected) Urine Cocaine Screen Not Detected (NotDetected) U Marijuana (THC) Screen Detected H (NotDetected) Disposition Clinical Impression: Methamphetamine use, Drug-induced amnesia, UTI (urinary tract infection) Disposition: HOME SELF-CARE Condition: Stable Additional Instructions: Please follow up with your primary care provider and psychiatrist. Return to the emergency department for new or worsening symptoms. Prescriptions: Cephalexin [Keflex] 500 mg PO Q12HR 7 Days #14 cap Is patient prescribed a controlled substance at d/c from ED?: No Referrals: Arminda Parkinson MD [Primary Care Provider] - 1-2 days
[2024-09-19 17:40] LABS: Basophils # (A) 0.1 k/uL (0-0.2); Basophils % (A) 1 %; Eosinophils # (A) 0.2 k/uL (0-0.7); Eosinophils % (A) 2 %; HCT 41.8 % (39.0-53.0); HGB 14.3 gm/dL (13.0-17.5); Lymphocytes # (A) 2.9 k/uL (1.0-4.8); Lymphocytes % (A) 28 %; MCH 28.9 pg (25.0-35.0); MCHC 34.3 g/dL (31.0-37.0); MCV 84.2 fL (80.0-100.0); Monocytes # (A) 0.5 k/uL (0-1.0); Monocytes % (A) 5 %; Neutrophils # (A) 6.5 k/uL (1.3-7.7); Neutrophils % (A) 63 %; Platelet Count 278 k/uL (150-450); RBC 4.97 m/uL (4.30-5.90); RDW 12.4 % (11.5-15.5); WBC 10.3 k/uL (3.8-10.6)
[2024-09-19 17:48] LABS: Appearance,Urine Cloudy (Clear); Bacteria,Urine Rare /hpf; Bilirubin,Urine Negative (Negative); Blood,Urine Negative (Negative); Color,Urine Yellow; Glucose,Urine (UA) Negative (Negative); Ketones,Urine Negative (Negative); Leukocyte Esterase,Urine Small (Negative); Mucus,Urine Rare /hpf; Nitrite,Urine Positive (Negative); PH, Urine 6.5 (5.0-8.0); Protein,Urine Trace (Negative); RBC,Urine <1 /hpf (0-5); Specific Gravity,Urine 1.026 (1.001-1.035); Urobilinogen,Urine <2.0 mg/dL (<2.0); WBC,Urine 17 /hpf (0-5)
[2024-09-19 17:49] LABS: ALT 34 U/L (4-49); AST 54 U/L (17-59); African American GFR (CKD) >90 (>60 ml/min/1.73 sqM); Albumin 4.4 g/dL (3.5-5.0); Alkaline Phosphatase 72 U/L (38-126); Amphetamine Screen,Urine Detected (NotDetected); Anion Gap 6 mmol/L; Barbiturate Screen,Urine Not Detected (NotDetected); Benzodiazepines Screen,Urine Not Detected (NotDetected); Blood Urea Nitrogen 19 mg/dL (9-20); Calcium 9.3 mg/dL (8.4-10.2); Carbon Dioxide 31 mmol/L (22-30); Chloride 99 mmol/L (98-107); Cocaine Screen,Urine Not Detected (NotDetected); Glucose 115 mg/dL (74-99); Methadone Screen, Urine Not Detected (NotDetected); Non-African American GFR(CKD) >90 (>60 ml/min/1.73 sqM); Opiate Screen,Urine Not Detected (NotDetected); Oxycodone Screen, Urine Not Detected (NotDetected); Phencyclidine Screen,Urine Not Detected (NotDetected); Potassium 4.4 mmol/L (3.5-5.1); Sodium 136 mmol/L (137-145); Total Bilirubin 0.6 mg/dL (0.2-1.3); Total Protein 6.8 g/dL (6.3-8.2); Tricyclic Antidepressant,Urine Not Detected (NotDetected); Urn Cannabinoid Scrn Detected (NotDetected)
[2024-09-19 18:27] VITALS: BP 126/75; PULSE 77; RESP 18
== END 2024-09-19 18:25 | disposition home or self-care (01) ==
LOC: EC 16:30
DX: F19.10 Other psychoactive substance abuse, uncomplicated (principal); F15.90 Other stimulant use, unspecified, uncomplicated; F17.200 Nicotine dependence, unspecified, uncomplicated; Z88.0 Allergy status to penicillin
CPT/HCPCS: 36415; 80053; 80306; 81001; 85025; 87086; 99284

== ENCOUNTER 2024-10-20 18:43 | Emergency (ER) | payer OTHER ==
[2024-10-20 18:53] VITALS: TEMP 98.3
--- NOTE | 2024-10-20 20:45 | XR ---
EXAMINATION TYPE: XR wrist complete LT DATE OF EXAM: 10/20/2024 7:41 PM COMPARISON: None CLINICAL INDICATION: Male, 34 years old with history of injury; PHH, pain TECHNIQUE: XR wrist complete LT; examined in the Frontal, navicular, lateral, and oblique. FINDINGS: No acute osseous pathology, joint dislocation, or joint effusion. No evidence of any soft tissue swelling is seen. Sclerotic area within the distal ulna possibly representing bone island. Brittany suring 4 mm. IMPRESSION: 1. No acute osseous pathology. 2. Distal ulna bone island. [facility], , 10/20/2024 8:43 PM
--- NOTE | 2024-10-20 20:52 | CT ---
EXAMINATION TYPE: CT brain cspine wo con DATE OF EXAM: 10/20/2024 7:39 PM COMPARISON: None. CLINICAL INDICATION: Male, 34 years old with history of injury; posterior head injury, pain TECHNIQUE: Brain: Multiple axial CT images of the brain were obtained without IV contrast. Cspine: Axial CT images from the skull base to the inferior aspect of T2 we obtained without intraven ous contrast. Coronal and sagittal reformatted images were also reviewed. . CT DLP: 1418.8 mGycm, Automated exposure control for dose reduction was used. FINDINGS: Brain: Extra-axial spaces: No abnormal extra-axial fluid collections. Ventricular system: Within normal limits Cerebral parenchyma: No acute intraparenchymal hemorrhage or mass effect. The watesr-white junction is well differentiated. Cerebellum: Unremarkable. Mass effect: No evidence of midline shift. Intracranial vasculature: unremarkable Soft tissues: Posterior scalp wound with bandage in place. Calvarium/osseous structures: No depressed skull fracture. Paranasal sinuses and mastoid air cells: Clear. Visualized orbits: Orbital contents are intact. Cervical spine: Fracture: None. Osseous structures: Unremarkable Vertebral alignment: Within normal limits. Spinal canal/Neural Foramina: No evidence of significant spinal canal narrowing. No evidence for sign ificant neural foraminal stenosis. Neck soft tissues: Prevertebral soft tissues are within normal limits. Other: The airway is patent. The lung apices are clear. IMPRESSION: 1. No acute intracranial process. 2. No evidence of cervical spine fracture. [facility], , 10/20/2024 8:50 PM
[2024-10-20] MEDS: LIDOCAINE 1% INJ 10MG/ML (20 ML MDV) SQ ONE (21:12)
[2024-10-20 21:30] VITALS: BP 135/89; PULSE 80; RESP 20
--- NOTE | 2024-10-20 21:30 | ED ---
Medical Clearance HPI - General Chief complaint: Medical Clearance Stated complaint: head injury Time Seen by Provider: 10/20/24 18:47 Source: patient, EMS Mode of arrival: ambulatory - History of Present Illness Initial comments: 34-year-old male brought in by EMS in police custody after head injury. Police were at the patient's home and ended up having to wrestle with the patient bringing him to the ground. He hit the back of his head and now has a 4 cm laceration to the scalp. No loss of consciousness or blood thinners. His last tetanus shot was 2019. He is having some left wrist pain as well. He still has full range of motion. He is feeling a bit nauseous and reports he is hungry and thirsty and is requesting something to drink. He is feeling sore. No other in juries. No numbness or tingling. No vomiting. He is having a little lightheadedness. Home medications: Previous Rx's Medication Instructions Recorded ARIPiprazole [Abilify] 5 mg PO DAILY 30 Days tab 09/18/19 Ibuprofen [Motrin] 400 mg PO TID PRN tab 09/18/19 Melatonin 5 mg PO HS 30 Days tablet 09/18/19 Nicotine Gum (Polacrilex) 2 mg BUCCAL Q4HR PRN 14 Days gum 09/18/19 [Nicorette] traZODone HCL 150 mg PO HS 30 Days tablet 09/18/19 Pantoprazole Sodium [Protonix] 20 mg PO DAILY #15 tablet. 10/08/19 Cephalexin [Keflex] 500 mg PO Q6H 10 Days #40 cap 03/03/20 Sulfamethox-Tmp 800-160Mg [Bactrim 1 tab PO Q12HR #20 tab 03/03/20 DS 800-160 mg] Cephalexin [Keflex] 500 mg PO Q12HR 7 Days #14 cap 09/21/24 Allergies/Adverse reactions: Allergies Allergy/AdvReac Type Severity Reaction Status Date / Time Penicillins Allergy Unknown Verified 09/19/24 16:31 Review of Systems ROS Statement: Those systems with pertinent positive or pertinent negative responses have been documented in the HPI. ROS Other: All systems not noted in ROS Statement are negative. Past Medical History Past Medical History: No Reported History History of Any Multi-Drug Resistant Organisms: None Reported Past Surgical History: Orthopedic Surgery Additional Past Surgical History / Comment(s): rt ankle Past Psychological History: Anxiety, Bipolar, Depression, Schizophrenia Smoking Status: Current some day smoker Past Alcohol Use History: None Reported Past Drug Use History: None Reported, Marijuana General Exam Limitations: no limitations General appearance: alert, in no apparent distress Expanded Head exam: Present: laceration (4 cm laceration to the posterior scalp) Eye exam: Present: normal appearance, PERRL, EOMI. Absent: periorbital swelling Neck exam: Present: normal inspection. Absent: meningismus Respiratory exam: Absent: respiratory distress Cardiovascular Exam: Present: regular rate Extremities exam: Present: normal inspection, full ROM Neurological exam: Present: alert, oriented X3 Expanded Eye Response: (4) open spontaneously Motor Response: (6) obeys commands Verbal Response: (5) oriented [place] Total: 15 Psychiatric exam: Present: normal affect, normal mood Course Vital Signs 10/20/24 10/20/24 18:45 21:29 Temperature 98.3 F Pulse Rate 72 80 Respiratory 18 20 Rate Blood Pressure 146/98 135/89 O2 Sat by Pulse 98 100 Oximetry Procedures - Laceration Laceration #1 Consent Obtained: verbal consent Indication: laceration Site: scalp Size (cm): 4 Description: linear Depth: simple, single layer Anesthetic Used: lidocaine 1%, without epi Anesthesia Technique: local infiltration Pre-repair: wound explored, irrigated extensively Type of Sutures: other (medardo) Patient Tolerated Procedure: well Medical Decision Making - Medical Decision Making Was pt. sent in by a medical professional or institution (JAZMINE Larose, CLOTH PACKER, urgent care, hospital, or mcc...) When possible be specific @ -No Did you speak to anyone other than the patient for history (EMS, parent, family, police, friend...)? What history was obtained from this source @ -Police Did you review nursing and triage notes (agree or disagree)? Why? @ -I reviewed and agree with nursing and triage notes Were old charts reviewed (outside hosp., previous admission, EMS record, old EKG, old radiological studies, urgent care reports/EKG's, mcc records)? Report findings @ -No old charts were reviewed Differential Diagnosis (chest pain, altered mental status, abdominal pain women, abdominal pain men, vaginal bleeding, weakness, fever, dyspnea, syncope, headache, dizziness, GI bleed, back pain, seizure, CVA, palpatations, mental health, musculoskeletal)? @ -Differential Musculoskeletal Muscular strain, contusion, ligament sprain, fracture, arthritis, septic arthritis, bursitis, cellulitis, muscle spasm, nerve compression, DVT, arterial occlusion, herpes zoster, electrolyte abnormality, tumor.... This is not meant to be in all inclusive list EKG interpreted by me (3pts min.). @ -As above X-rays interpreted by me (1pt min.). @ -X-ray shows no acute osseous pathology. Distal ulna bone island CT interpreted by me (1pt min.). @ -CT shows no acute intracranial process. No evidence of cervical spine fracture. U/S interpreted by me (1pt. min.). @ -None done What testing was considered but not performed or refused? (CT, X-rays, U/S, labs)? Why? @ -None What meds were considered but not given or refused? Why? @ -None Did you discuss the management of the patient with other professionals (professionals i.e. , PA, CLOTH PACKER, lab, RT, psych nurse, social media marketing specialist, soda clerk, teacher, gunnery/ordnance officer, caseworker intake)? Give summary @ -No Was smoking cessation discussed for >3mins.? @ -No Was critical care preformed (if so, how long)? @ -No Were there social determinants of health that impacted care today? How? (Homelessness, low income, unemployed, alcoholism, drug addiction, transportation, low edu. Level, literacy, decrease access to med. care, skilled nursing, rehab)? @ -No Was there de-escalation of care discussed even if they declined (Discuss DNR or withdrawal of care, Hospice)? DNR status @ -No What co-morbidities impacted this encounter? (DM, HTN, Smoking, COPD, CAD, Canc er, CVA, ARF, Chemo, Hep., AIDS, mental health diagnosis, sleep apnea, morbid obesity)? @ -None Was patient admitted / discharged? Hospital course, mention meds given and route, prescriptions, significant lab abnormalities, going to OR and other pertinent info. @ -34-year-old male brought in for head injury. Patient is brought in by EMS and accompanied by police. He was wrestled to the ground by police and now has a 4 cm laceration to the scalp. Is also having some left wrist pain. On exam there is no anatomical snuffbox tenderness, this is more of a generalized pain of the radial aspect of the wrist. No pain with movement of the thumb. Patient has no focal neurological deficits and GCS is 15. No acute process seen on CT of the brain and cervical spine or x-ray of the wrist. Tetanus shot is up-to-date. Laceration is repaired using medardo, see procedure note for details. Patient is medically cleared for skilled nursing and released into police custody. Report back to ER with any new or worsening symptoms. I discussed this case with my attending Dr. Grey Undiagnosed new problem with uncertain prognosis? @ -No Drug Therapy requiring intensive monitoring for toxicity (Heparin, Nitro, Insulin, Cardizem)? @ -No Were any procedures done? @ -Laceration repair Diagnosis/symptom? @ -Head injury, scalp laceration Acute, or Chronic, or Acute on Chronic? @ -Acute Uncomplicated (without systemic symptoms) or Complicated (systemic symptoms)? @ -Uncomplicated Side effects of treatment? @ -No Exacerbation, Progression, or Severe Exacerbation? @ -No Poses a threat to life or bodily function? How? (Chest pain, [place], [place], pneumonia, PE, COPD, DKA, ARF, appy, cholecystitis, CVA, Diverticulitis, Homicidal, Suicidal, threat to staff... and all critical care pts) @ -Unlikely Disposition Clinical Impression: Head injury, Scalp laceration Disposition: HOME SELF-CARE Condition: Good Instructions (If sedation given, give patient instructions): Head Injury (ED), Staple Care (ED), Head Laceration (ED) Additional Instructions: Follow-up with PCP. Report back to ER with any new or worsening symptoms. Is patient prescribed a controlled substance at d/c from ED?: No Referrals: Arminda Parkinson MD [Primary Care Provider] - 1-2 days Time of Disposition: 21:30
== END 2024-10-20 21:37 | disposition home or self-care (01) ==
LOC: EC 18:43
DX: S01.01XA Laceration without foreign body of scalp, initial encounter (principal); M25.532 Pain in left wrist; F17.200 Nicotine dependence, unspecified, uncomplicated; Z88.0 Allergy status to penicillin; Y04.0XXA Assault by unarmed brawl or fight, initial encounter
CPT/HCPCS: 73110; 72125; 70450; 12002; 99284; J2003